=== PATIENT | male | born 1975 | race Caucasian/White ===

== ENCOUNTER 2018-07-28 13:29 | Emergency (ER) | payer SELFPAY ==
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
[2018-07-28 19:54] LABS: Urine Benzodiazepine Screen None Detected (None Detect); Urine Opiates Screen None Detected (None Detect)
--- NOTE | 2018-07-28 19:59 | ED ---
Progress - Progress Note Progress Note: Receiving sign-out from Dr. Mane at shift change 1900 pending MHE. ESTEVAN diagnosed the patient with unspecified mood disorder. Dr. Brown, Psychiatry , sees the patient as no threat to himself nor others and will discharge the patient. The patient is agreeable with this plan. - Consult/PCP Time Called: 18:30 Course/Dx - Course Course Of Treatment: Receiving sign-out from Dr. Mane at shift change 1900 pending MHE. [facility] diagnosed the patient with unspecified mood disorder. Dr. Brown, Psychiatry, sees the patient as no threat to himself nor others and will discharge the patient. The patient is agreeable with this plan. - Diagnoses Provider Diagnoses: Unspecified mood [affective] disorder Discharge - Sign-Out/Discharge Documenting (check all that apply): Patient Departure - Discharge, per MHE, Receiving Sign-Out Receiving patient FROM: Douglas Mane - Discharge Plan Condition: Stable Referrals: [facility] [Outside] - Attestation Statements Document Initiated by Scribe: Yes Documenting Scribe: Jun Littlejohn Provider For Whom Leon is Documenting (Include Credential): Kameron Man MD Scribe Attestation: I, Jun Littlejohn, scribed for Kameron Man MD on 07/28/18 at 2026. Status of Scribe Document: Ready
[2018-07-28] MEDS ORDERED: Nicotine PATCH 21 MG/24 HR* PATCH TRANSDERM ONE (20:09)
== END 2018-07-28 21:06 | disposition home or self-care (01) ==
LOC: ED 13:29
DX: F39 Unspecified mood [affective] disorder (principal)
CPT/HCPCS: 80307; 99285; A9270-GY